=== PATIENT | male | born 1980 | race Caucasian/White ===

== ENCOUNTER 2018-10-22 21:57 | Emergency (ER) | payer OTHER ==
[2018-10-22 22:07] VITALS: BP 134/79; PULSE 78; TEMP 99; BMI 25.8
[2018-10-22] MEDS ORDERED: ACETAMINOPHEN 325 MG TABLET (FP) PO ONE (23:46)
--- NOTE | 2018-10-22 23:52 | PDOC ---
History of Present Illness - General Chief Complaint: Injury Stated Complaint: to be seen Time Seen by Provider: 10/22/18 22:31 History Source: Patient Exam Limitations: No Limitations - History of Present Illness Initial Comments: 10/22/18 23:57 HISTORY OF PRESENT ILLNESS: 38-year-old male denies medical history presents emergency department for evaluation of left upper arm pain starting this afternoon. Patient reports presently one week ago was playing with his kids on the swing set, he attempted to hold himself up felt a "popping sound" in his left upper extremity. Patient thought he had sprained the tendon so he rested and took nonsteroidal anti-inflammatory medications. Today while playing with his kids tried to do a flip while jumping into the pool and reported he felt a similar sensation in his left upper arm and then noted some bruising and swelling to his left upper arm. Patient was taken Motrin for pain relief which has been minimally effective. Patient reports despite applying ice noted the hematoma was growing in size. Denies any numbness or tingling to his extremities or severe pain. No recent travel or sick contacts. PAST MEDICAL HISTORY: Denies past medical history SURGICAL HISTORY: Denies ALLERGIES: No known drug allergies REVIEW OF SYSTEMS General/Constitutional: Denies fever or chills. Denies weakness, weight change. HEENT: Denies change in vision. Denies ear pain or discharge. Denies sore throat. Cardiovascular: Denies chest pain or shortness of breath. Respiratory: Denies cough, wheezing, or hemoptysis. Gastrointestinal: Denies nausea, vomiting, diarrhea or constipation. Denies rectal bleeding. Genitourinary: Denies dysuria, frequency, or change in urination. Musculoskeletal: see HPI Skin and breasts: Denies rash or easy bruising. Neurologic: Denies headache, vertigo, loss of consciousness, or loss of sensation. Psychiatric: Denies depression or anxiety. Endocrine: Denies increased thirst. Denies abnormal weight change. Hematologic/Lymphatic: Denies anemia, easy bleeding, or history of blood clots. Allergic/Immunologic: Denies hives or skin allergy. Denies latex allergy. PHYSICAL EXAM General Appearance: Well-appearing, appropriately dressed. No apparent distress , no intoxication. Respiratory/Chest: Lungs CTAB. No shortness of breath, chest tenderness, respiratory distress, accessory muscle use. No crackles, rales, rhonchi, stridor , wheezing, dullness Cardiovascular: RRR. S1, S2. No JVD, murmur, bradycardia, tachycardia. Vascular Pulses: Dorsalis-Pedis (R): 2+, Dorsalis-Pedis (L): 2+, Radial (L): 2+ , Radial (R): 2+, Ulnar (L): 2+, Ulnar (R): 2+ Lymphatic: No adenopathy, tenderness. Musculoskeletal/Extremities: Swelling present to the left upper arm worse on the medial aspect of his arm. Tightness and pressure present over swelling. Ecchymosis present in the left antecubital fossa extending proximally over the medial aspect of his upper arm. Full range of motion of the elbow, wrist and fingers. Capillary refill is less than 2 seconds to all fingers. Full sensation present distal to the swelling. No discoloration present distal to swelling. Skin temperature is WNL. Integumentary: Ecchymosis as above. Neurologic: pressure steamer tender II-XII intact. Fully oriented, alert. Appropriate mood/affect. Motor strength 5/5. No appreciable EOM palsy, facial droop or sensory deficit. 10/24/18 16:12 Past History - Past Medical History Allergies/Adverse Reactions: Allergies Allergy/AdvReac Type Severity Reaction Status Date / Time No Known Allergies Allergy Verified 10/22/18 22:04 COPD: No - Immunization History Immunization Up to Date: Yes - Suicide/Smoking/Psychosocial Hx Smoking History: Never smoked Have you smoked in the past 12 months: No Information on smoking cessation initiated: No Hx Alcohol Use: No Drug/Substance Use Hx: No *Physical Exam - Vital Signs Last Vital Signs Temp Pulse Resp BP Pulse Ox 99.0 F 78 16 134/79 100 10/22/18 21:59 10/22/18 21:59 10/22/18 21:59 10/22/18 21:59 10/22/18 21:59 ED Treatment Course - RADIOLOGY Radiology Studies Ordered: Category Date Time Status DUPLEX VASCUL US-1 ARM [US] Stat Ultrasound 10/22/18 22:39 Taken Medical Decision Making - Medical Decision Making 10/22/18 23:46 A/P: 38-year-old male with left antecubital fossa hematoma Left upper extremity were pressure present to the medial aspects over the humerus Full range of motion of elbow, wrist and fingers of left arm 2+ radial and ulnar pulses present Capillary refill is less than 2 seconds Neurovascular intact Given warmth and tenderness pressure present over the upper extremity I will get an ultrasound to rule out DVT. As of now there is no signs or symptoms of compartment syndrome should this be an expanding hematoma. Ultrasound as read by imaging manager of organizational development: No left upper extremity venous thrombosis. Within the area of interest within the left upper arm there is a large heterogeneous soft tissue abnormality which is indeterminate from a sonographic standpoint likely represents a large soft tissue hematoma. I believe the patient is reliable and I will discharge the patient home with strict return precautions. *DC/Admit/Observation/Transfer Diagnosis at time of Disposition: Hematoma of arm Qualifiers: Encounter type: initial encounter Laterality: left Qualified Code(s): S40.022A - Contusion of left upper arm, initial encounter - Discharge Dispostion Disposition: HOME Condition at time of disposition: Fair Decision to Admit order: No - Referrals Referrals: Antelmo Garvey DO [Staff Physician] - - Patient Instructions Additional Instructions: Keep your left arm elevated to the level of the heart as often as possible. Apply ice to affected area as needed for no more than 20 minutes at a time. Keep the ice off the affected area for at least 20 minutes before reapplying. Take Tylenol as needed for pain. Return to the emergency department immediately for numbness and tingling of the fingers, discoloration of the fingers, severe pain uncontrolled by the Tylenol or for any other concerns. You've been given a referral for an orthopedic surgeon. Call for evaluation. Thank you very much for choosing us to provide your emergent health care needs. - Post Discharge Activity Forms/Work/School Notes: Back to Work
--- NOTE | 2018-10-22 23:57 | PDOC ---
*Physical Exam - Vital Signs Last Vital Signs Temp Pulse Resp BP Pulse Ox 99.0 F 78 16 134/79 100 10/22/18 21:59 10/22/18 21:59 10/22/18 21:59 10/22/18 21:59 10/22/18 21:59 Medical Decision Making - Medical Decision Making 10/22/18 23:57 Case reviewed, agree with assessment and plan *DC/Admit/Observation/Transfer Diagnosis at time of Disposition: Hematoma of arm Qualifiers: Encounter type: initial encounter Laterality: left Qualified Code(s): S40.022A - Contusion of left upper arm, initial encounter - Discharge Dispostion Disposition: HOME Condition at time of disposition: Fair - Referrals Referrals: Antelmo Garvey DO [Staff Physician] - - Patient Instructions Additional Instructions: Keep your left arm elevated to the level of the heart as often as possible. Apply ice to affected area as needed for no more than 20 minutes at a time. Keep the ice off the affected area for at least 20 minutes before reapplying. Take Tylenol as needed for pain. Return to the emergency department immediately for numbness and tingling of the fingers, discoloration of the fingers, severe pain uncontrolled by the Tylenol or for any other concerns. You've been given a referral for an orthopedic surgeon. Call for evaluation. Thank you very much for choosing us to provide your emergent health care needs. - Post Discharge Activity Forms/Work/School Notes: Back to Work
[2018-10-23] MEDS ORDERED: ACETAMINOPHEN 325 MG TABLET (FP) ONE
== END 2018-10-23 00:05 | disposition home or self-care (01) ==
LOC: JER 21:57
DX: S40.022A Contusion of left upper arm, initial encounter (principal); W01.0XXA Fall on same level from slipping, tripping and stumbling without subsequent striking against object, initial encounter; Y93.11 Activity, swimming; Y92.9 Unspecified place or not applicable
CPT/HCPCS: 93971; 99281-25

== ENCOUNTER 2018-11-06 13:13 | Day surgery (SDC) | payer OTHER ==
[2018-11-03 11:21] VITALS: BMI 26.9
[2018-11-06] MEDS ORDERED: DEXAMETHASONE SOD PHOSPHATE/PF 10 MG/ML SDV ONE (14:41)
[2018-11-06] MEDS ORDERED: MIDAZOLAM HCL 2 MG/2 ML SINGLE DOSE VIAL ONE (14:42)
[2018-11-06] MEDS ORDERED: ROPIVACAINE HCL 0.5% 30ML VIAL ONE (14:42)
[2018-11-06] MEDS ORDERED: PROPOFOL 20 ML ONE (15:29)
[2018-11-06] MEDS ORDERED: DEXAMETHASONE SOD PHOSPHATE 4 MG/1 ML VIAL ONE ×2 (15:35→16:40)
[2018-11-06] MEDS ORDERED: ceFAZolin SODIUM 1 GM VIAL ONE ×2 (15:35→16:40)
[2018-11-06] MEDS ORDERED: ONDANSETRON 4 MG/2 ML VIAL ONE (15:35)
[2018-11-06] MEDS ORDERED: BENZOIN/ALOE VERA/STORAX/TOLU 58 ML BOTTLE ONE (16:46)
[2018-11-06] MEDS ORDERED: GUM MASTIC/STORAX/MSAL/ALCOHOL 1 DRP DROPSBTL MC ONE (16:46)
[2018-11-06] MEDS ORDERED: ONDANSETRON 4 MG/2 ML VIAL IVPUSH PRN (17:05)
[2018-11-06] MEDS ORDERED: oxyCODONE HCL 5 MG TABLET PO PRN ×2 (17:05)
[2018-11-06] MEDS ORDERED: PROMETHAZINE HCL 25 MG/1 ML VIAL IVPUSH PRN (17:05)
[2018-11-06] MEDS ORDERED: ACETAMINOPHEN 325 MG TABLET (FP) PO SCH (17:15)
[2018-11-06] MEDS ORDERED: PROMETHAZINE HCL 25 MG/1 ML VIAL ONE (17:35)
[2018-11-06 18:44] VITALS: TEMP 98
[2018-11-06 18:46] VITALS: PULSE 62
[2018-11-06 18:55] VITALS: BP 123/63
--- NOTE | 2018-11-07 11:45 | OP ---
DATE OF OPERATION: 11/06/2018 PREOPERATIVE DIAGNOSIS: Left distal biceps rupture. POSTOPERATIVE DIAGNOSIS: Left distal biceps rupture. OPERATIVE PROCEDURE: Left distal biceps repair. SURGEON: Beau Ivy MD [employer] SKI MAKER: JAIMIE Aviles ANESTHESIA: General and regional. COMPLICATIONS: None. ESTIMATED BLOOD LOSS: Minimal. INDICATIONS FOR PROCEDURE: The patient is a 38-year-old male with the above findings indicated for operative treatment. The risks, benefits, and alternatives were discussed with the patient at length, and proper informed consent was obtained. PROCEDURE: After proper identification of the patient and the correct operative site, the patient was brought to the operating room and placed supine on the operating table, prominences well-padded. Regional anesthesia was given. General anesthesia was given. Left upper extremity was prepped and draped in the usual sterile fashion. A well-padded tourniquet was placed with a sterile prep. Esmarch bandage was used to exsanguinate left upper extremity. Tourniquet was inflated to 250 mmHg. Transverse incision was made distal to the volar elbow crease. The incision was taken sharply through the skin with blunt and sharp dissection of subcutaneous tissues taking care to protect neurovascular structures. Biceps tendon was found to have severe tendinosis and was retracted. Release was performed around the biceps to allow distal placement of the tendon. The tendon ends were debrided and whipstitched with a No.2 FiberWire suture. Finger dissection was then done all the way to the level of the tuberosity, which was cleared of soft tissue carefully. The guidewire was then placed into the bicipital tuberosity and over-reamed with an 8-mm reamer. A biceps button by [employer] was then used to repair the tendon back down into the bone socket. The tendon was a little bit tight, but was easily brought into the socket with about 20 degrees of flexion of the elbow. The suture was then passed through the biceps tendon again and tied to itself. This provided secure stable biceps fixation without undue tension. The elbow was now able to be fully extended. The wound was irrigated with saline and repaired in layers using 4-0 Vicryl and 4-0 Monocryl sutures. Steri-Strips and sterile dressings were applied. Splint was placed. Patient was reversed from anesthesia and brought to the recovery room in stable condition. Carlos Manuel Hong, the assistant teacher, was integral throughout the procedure. The procedure could not have been performed without a skilled operative assistant teacher. Luiza [id number]
== END 2018-11-06 18:55 | disposition home or self-care (01) ==
LOC: FASU 13:13
PROVIDERS: ATTEND Orthopaedic Surgery Hand Surgery
PROC: 0LM40ZZ Reattachment of Left Upper Arm Tendon, Open Approach (ICD-10-PCS; principal; 2018-11-06 15:50)
DX: S46.212A Strain of muscle, fascia and tendon of other parts of biceps, left arm, initial encounter (principal); X58.XXXA Exposure to other specified factors, initial encounter; Y93.9 Activity, unspecified; Y92.9 Unspecified place or not applicable
CPT/HCPCS: 94760

== ENCOUNTER 2020-04-22 09:55 | Emergency (ER) | payer OTHER | END 2020-04-22 11:47 | disposition home or self-care (01) | LOC: JVIRT 09:55 | DX: Z11.59 Encounter for screening for other viral diseases (principal) | CPT/HCPCS: C9803; G2251-GT; Q3014-GT; U0003 ==